=== PATIENT | male | born 1985 | race African-American/Black ===

== ENCOUNTER → 2023-05-14 07:41 | Outpatient (REF) | payer OTHER, SELFPAY | LOC: HWRAD 07:41 | PROVIDERS: ATTENDING PHYSICIAN Internal Medicine Rheumatology; FAMILY PHYSICIAN Physician Assistant | DX: M05.79 Rheumatoid arthritis with rheumatoid factor of multiple sites without organ or systems involvement (principal) | CPT/HCPCS: 76700 ==

== ENCOUNTER 2024-04-04 15:17 | Inpatient (IN) | payer OTHER, SELFPAY ==
[2024-04-04 09:44] VITALS: BP 116/80
--- NOTE | 2024-04-04 10:54 | ED.GENMED ---
History of Present Illness
General
Chief Complaint: Eye Problems
Source: patient
Time Seen by Provider: 04/04/24 10:37
History of Present Illness
History of Present Illness:
This patient is a very pleasant 38-year-old male who says that he first noticed discomfort in the left forehead and infraorbital area around Patrick time, but did not think much about it. Then, he felt like his discomfort got worse associated
with a red eye without drainage, and 'bumps' on his upper lip on the left side. He feels that the left side of his upper face and midface is a little swollen as well. He describes an episode of preseptal cellulitis years ago, but states that the
symptoms are much more mild than prior. He denies fever, chills, sweats, visual changes, eye discharge, foreign body sensation, ear pain, sore throat, cough, chest pain, shortness of breath, trouble swallowing, or other complaints.
Past History
Past History
ED Past Medical History: Other (Sarcoidosis, hypertension, reflux)
ED Past Surgical History: Other (Lymph node biopsy, vocal cord surgery)
Social History
Tobacco: Former smoker
Alcohol: None
Drug: None
Personal:
Living: with family
Employment: Employed
Phy Exam
Physical Exam
Physical Exam:
GENERAL: Alert , in no apparent distress
EYE: pupils equal and reactive, mild conj injection, no drainage/discharge. Flourescein stain, no lesions/abnl noted. EOMI without pain or limitation, no photophobia, no nystagmus, no proptosis. There is chemosis and mild swelling noted of st L
periorbital area.
NECK: Supple, no significant adenopathy.
ENT: o/p clr, mmm. Small papules noted L side Upper lip.
CARDIAC: Regular rate and rhythm .
LUNGS: Clear breath sounds bilaterally, no acute respiratory distress, no wheezes/rales/rhonchi
ABDOMEN: Soft, without focal tenderness, no r/g, no cvat
NEUROLOGICAL: Alert and oriented, no focal neuro deficits
SKIN: Warm and dry, skin intact.
MUSCULOSKELETAL: No edema, well perfused.
PSYCH: Normal and appropriate interaction.
Course
Orders/Labs/Results
Orders:
Orders
04/04/24 10:51
CT Orbits With Iv Contrast Urgent
Comment:
Reason For Exam: l perioribtal swelling
04/04/24 10:52
Visual Acuity- Treatment ONCE
04/04/24 11:14
Fluorescein Sodium [Ful-Sherie] 2 mg .ROUTE .STK-MED ONE
Tetracaine HCl [Tetracaine 0.5% Ophthalmic Solution] 1 drop .ROUTE .STK-MED ONE
04/04/24 11:22
Basic Metabolic Panel Urgent
Complete Blood Count/No Diff Urgent
04/04/24 13:51
CefTRIAXone [Rocephin] 1,000 mg IV NOW STA
MetroNIDAZOLE 500 MG/100 ML [Flagyl 500 mg] 100 ml IV NOW
04/04/24 13:55
Vancomycin [Vancocin] 1,500 mg 0.9% Sodium Chloride 500 ml [Nss] 500 ml IV NOW
04/04/24 14:58
Admit/Transfer Patient As Directed
Co-Sign Provider:
Level of Care: Inpatient admission
Assign to:: Medical/Surgical
Physician / Group: Ezekiel Bowles
Diagnosis: dacryoadenitis
Reason for Hospitalization: dacryoadenitis
Expected length of stay greater than two midnights?: Yes
ELOS- Estimated Length of Stay in days: 3
I certify the patient meets the requirements for IP care: Yes
PRN Pain Medication Management As Directed
May give lesser potent ordered pain med per pt: Yes
preference::
Protocol:: Medication orders for pain may be administered in a
manner that supports deferring to patient preference
when the pt is:
- Requesting an ordered lesser potent pain medication.
Least to most potent pain medications are defined
as: acetaminophen < NSAID < tramadol < opioids
(morphine, oxycodone, hydromorphone).
- Requesting a lesser dose of the same medication IF
ORDERED.
- Requesting a less intrusive route of administration
if both routes are prescribed by the provider (PO <
IV).
04/04/24 15:00
Code Status As Directed
Resuscitation Status: Full Code
Regular
At Your Request: Full Participation
04/04/24 15:03
Piperacillin/Tazo 3.375 Gram [Zosyn] 3.375 gram in 50 ml IV NOW
04/04/24 16:00
Flush (0.9% Sodium Chloride) [Flush (Nss)] See Dose Instructions IV PER PROTOCOL
04/04/24 18:25
Activity As Directed
Activity Level: Ambulate
Vital Signs As Directed
Frequency: Per unit guidelines
Weight As Directed
Frequency: Once
DX Deep Vein Thrombosis Video Routine
04/04/24 22:00
Piperacillin/Tazo 3.375 Gram [Zosyn] 3.375 gram in 50 ml IV Q6H
04/05/24 07:39
Complete Blood Count/No Diff IN AM
04/05/24 08:00
Losartan [Cozaar] 25 mg PO DAILY
Montelukast Sodium [Singulair] 10 mg PO DAILY
Pantoprazole [Protonix] 40 mg PO DAILY
04/05/24 18:00
Enoxaparin Sodium [Lovenox] 40 mg SC QPM
Abnormal Lab Results
04/04/24
11:22
MCHC 32.5 L g/dL
(33.0-37.0)
Glucose 101 H mg/dl
(70-99)
04/04/24 11:22
04/04/24 11:22
Vital Signs
Initial and Last Documented VS:
Initial Vital Signs
Temp Pulse Resp BP Pulse Ox
98.4 F 103 18 116/80 95
04/04/24 09:44 04/04/24 09:44 04/04/24 09:44 04/04/24 09:44 04/04/24 09:44
Last Documented Vital Signs
Temp Pulse Resp BP Pulse Ox
98.1 F 90 20 160/64 98
04/07/24 07:51 04/07/24 07:51 04/07/24 07:51 04/07/24 07:51 04/07/24 07:51
*Critical Care Note
Total Time (30-74mins, 75-104mins- exclusive of procedures): Not Applicable
Update Note
Update Note:
Patient presents to the Emergency Department with periorbital swelling
Number and Complexity of Problems Addressed at the Encounter
� Chronic conditions affecting care:
� Acute Exacerbation and/or Progression of Chronic Illness:
� Differential Diagnosis includes: But not limited to shingles, septal cellulitis, preseptal cellulitis, etc.
Amount and/or Complexity of Data to be Reviewed and Analyzed
� I performed an independent evaluation of and my interpretation is:
EKG:
CT:read by rads Predominantly soft tissue prominence in the region of the left lacrimal gland suggesting dacryoadenitis
Xrays:
Laboratory Studies:unremarkable
Other:
� Review of other/old records reveals: prior d/c summary reviewed: pt had very similar presentation, dx with dacryoadenitis, MSSA +, initially on rocephin/flagyl/vanco and then spectrum narrowed.
� Clinical information was obtained by an independent historian:
� Prescriptions/Medications Considered but not given:
� Further testing considered but not performed:
Risk of Complications and/or Morbidity or Mortality of Patient Management
� Social determinants of health affecting care:
� Discussion with other providers (PCP, Hospitalists, Consultants, etc):
� Escalation of care including admission/observation vs risk of discharge considered:case d/w pt, we will admit, broader iv abx coverage, close obs.
I still wonder if papules at lip and L forehead represent early zoster? Will need close monitoring. No corneal involvement at this time.
ED Attending Note
-
Portions of this chart may have been created with voice recognition software.� Occasional wrong word or��sound alike� substitutions may have occurred due to the inherent limitations of voice recognition software.
Discharge Plan
Departure
Patient Disposition: Admit
Date of Disposition: 04/04/24
Time of Disposition: 13:58
Admit to: Med/Surg
Presentation/result/management discussed w/ accepting MD/DO: Hospitalist
Condition: Fair
Discharge Problem:
Dacryoadenitis
Interventions
Interventions:
*Risk Screen - Suicide Last Done: 04/04/24 18:34
*General Assessment Last Done: 04/04/24 09:44
*Neglect/Abuse Screening Last Done: 04/04/24 09:44
ED- Fall Risk Assessment Last Done: 04/04/24 11:29
*ED COVID-19 Vaccine History Last Done: 04/04/24 11:29
*Nursing Disposition Last Done: 04/04/24 18:26
Discharge Date and Time
Discharge Date/Time: 04/04/24 18:27
[2024-04-04 11:38] LABS: Hematocrit 42.8 % (39.0-52.0); Hemoglobin 13.9 g/dL (13.0-18.0); Mean Corp Hgb Conc. 32.5 g/dL (33.0-37.0); Mean Corpuscular Hgb 28.9 pg (27.0-31.0); Platelet Count 230 10^3/uL (130-400); Red Blood Cell Count 4.81 10^6/uL (4.70-6.10); Red Cell Dist. Width 14.2 % (11.5-14.5); White Blood Cell Count 6.8 10^3/uL (4.8-10.8)
[2024-04-04 11:48] LABS: Blood Urea Nitrogen 14 mg/dl (9-20); Calcium 9.1 mg/dl (8.4-10.2); Carbon Dioxide 27 mmol/L (22-30); Chloride 103 mmol/L (98-107); Glucose 101 mg/dl (70-99); Potassium 4.2 mmol/L (3.5-5.1); Sodium 140 mmol/L (135-145); eGFR > 60.00
[2024-04-04 13:44] VITALS: BP 160/106
--- NOTE | 2024-04-04 14:08 | HPS.HSE ---
Family Physician
-
Family Physician: Janis Gomez
Chief Complaint
-
Left eye discomfort
History of Present Illness
Patient is a 38-year-old male with past medical history significant for sarcoidosis, hypertension and GERD who presented to [facility] for evaluation of left eye discomfort. Patient reports on Patrick he noticed a headache located in the left
periorbital area with some mild redness that resolved after taking Motrin. Since then he has intermittent headaches in the same area that improved after taking Motrin. This morning he claims he woke with left periorbital swelling, erythema and eye
was crusted shut. All associated with upper left teeth discomfort and area of small bumps on upper left lip. He feels the left side of his face from just above brow to lip is mildly swollen. He cleansed with warm water and has not seen any drainage
since. Patient denies any fever, chill, cough, shortness of breath, chest pain, nausea, emesis, constipation, diarrhea or urniary symptoms.
Medical History
Past Medical History
Past Medical History: Reports Other
Additional Past Medical History:
sarcoidosis
hypertension
seasonal allergies
GERD
Past Surgical History: Reports Other
Additional Past Surgical History:
Lymph node biopsy
vocal cord surgery
nasal polypectomy
tear duct surgery
Social History
Tobacco: Former Smoker (quit 12 year ago, 3 pack year history)
Alcohol: Occasional
Drug: None
Personal:
Living: With Family
Employment: Employed
Family History
Family History: Not pertinent
Allergies / Home Medications
Allergies reflects when Allergies were last updated in [facility].
Home Medications with original date entered in [facility]
Allergy/Medication List:
Allergies
Allergy/AdvReac Type Severity Reaction Status Date / Time
sulfamethoxazole Allergy Rash Verified 04/04/24 09:44
[From Bactrim]
trimethoprim [From Bactrim] Allergy Rash Verified 04/04/24 09:44
Home Medications
infliximab 100 mg intravenous solution (Remicade) 100 mg IV Q2M 08/04/19
amoxicillin 875 mg-potassium clavulanate 125 mg tablet 1 tab PO BID #20 tabs 06/29/22
losartan 25 mg tablet 25 mg PO DAILY 06/29/22
omeprazole 40 mg capsule,delayed release 40 mg PO DAILY 06/29/22
dextroamphetamine-amphetamine ER 30 mg 24hr capsule,extend release (Adderall XR) 30 mg PO DAILY 04/04/24
montelukast 10 mg tablet (Singulair) 10 mg PO DAILY 04/04/24
tirzepatide 7.5 mg/0.5 mL subcutaneous pen injector (Mounjaro) 7.5 mg SC FR 04/04/24
Review of Systems
-
History Source: Patient
Constitutional: Reports No Symptoms
EENT: Reports Other (Left periorbital erythema and edema, some crusting this morning, upper left teeth pain and small bumps on upper left lip)
Respiratory: Reports No Symptoms
Cardiac: Reports No Symptoms
Abdomen/GI: Reports No Symptoms
: Reports No Symptoms
Musculoskeletal: Reports No Symptoms
Skin: Reports No Symptoms
Neurological: Reports No Symptoms
Endocrine: Reports No Symptoms
Hematologic/Lymphatic: Reports No Symptoms
Psych: Reports No Symptoms
Physical Exam
Vital Signs
Vital Signs
Temp Pulse Resp BP Pulse Ox
98.4 F 96 18 160/106 96
04/04/24 09:44 04/04/24 13:44 04/04/24 09:44 04/04/24 13:44 04/04/24 13:44
Physical Exam
General: Well Developed, Well Nourished, No Apparent Distress, Comfortable and Conversant
HEENT: NormoCephalic, Moist mucous membranes, Atraumatic, PERRLA, [place] Conjunctivae, Nose Appears Normal, Ears Appear Normal and Other (Left periorbital erythema and chemosis, mild left face edema); No No Ptosis
Respiratory: Clear and Non Labored Respirations
Cardiac: S1/S2 and Regular Rhythm; No Murmur, Rub or Gallop
Breast: Deferred by me
GI: Soft, Non Tender, Non Distended and Normal Bowel Sounds; No Organomegaly
Rectal: Deferred by Provider
Genito-urinary: Deferred by me
Musculoskeletal: No Clubbing, No Cyanosis and No Edema
Skin: Warm and IV/Catheter Site; No Rash
Neuro: Awake, Alert, AO x 3 and Nonfocal/grossly intact
Hematologic/Lymphatic: No Lymphadenopathy
Psych: Calm and Intact Judgment/Insight
Laboratory Results
-
04/04/24 11:22
04/04/24 11:22
Data Reviewed
-
CT Scan: Report Reviewed by me (Head/Orbits: Predominantly soft tissue prominence in the region of the left lacrimal gland suggesting dacryoadenitis)
Impression/Plan
-
IMPRESSION/PLAN:
#Dacryoadenitis
Head/Orbits CT: Predominantly soft tissue prominence in the region of the left lacrimal gland suggesting dacryoadenitis
- Admit to med/surg
- IV antibiotics
#sarcoidosis
Managed with Remicade q2M
#hypertension
- continue losartan
#seasonal allergies
- continue cetirizine, and fluticasone propionate nasal spray
#GERD
- continue omeprazole
Code Status: Full Code
DVT Prophylaxis: Lovenox Sq
[2024-04-04 15:25] VITALS: BMI 48.8
--- NOTE | 2024-04-04 15:32 | W.PN.UPDATE ---
Update Note
Progress Note Update
This is an addendum to the H&P written by Kelli Li on 04/04/2024. 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
38-year-old male past medical history of sarcoidosis with lung/nasal granuloma involvement stable on Remicade, prior dacryoadenitis of left eye 4 years ago, chronic sinusitis follows ENT regularly, hypertension, GERD, ADHD, presenting with left
forehead and infraorbital discomfort around Patrick. Over the past day he has developed left eye discomfort and redness and sensitivity.
He also has an area of redness around the skin to his left eye which could be contiguous cellulitis.
No pain with eye movements. No blurry vision or vision loss.
He has also developed a cold sore under his left upper lip and the mucosa which is painful.
Head/orbit CT scan shows left lacrimal gland dacryoadenitis. Also possible preseptal cellulitis. No signs of acute sinusitis at this time. Vancomycin/Zosyn. Patient also has a cold sore in his mouth. Findings likely due to underlying
sarcoidosis although no clear indication for steroids at this time. Doubt pyoderma gangrenosum. Continue vancomycin/Zosyn.
[2024-04-04] MEDS: ZOSYN 50 IV ×2 (15:53→22:21)
[2024-04-04] MEDS: VANCOCIN 530 MG IV (16:36)
[2024-04-04 18:27] VITALS: BP 154/112; BMI 49.5
--- NOTE | 2024-04-04 18:45 | PTCARENOTE ---
Received pt from ER.Pt awake alert and oriented x3. Pt c/o pain in teeth describes as 'nerve like pain' tolerable at this time. Pt 100% on RA. No c/o SOB. Pt bp elevated admitting MD made aware. Pt also c/o face feeling hot, numb, pins and needles
within 15 minutes of vanco infusion starting arrived to floor with only 20cc left in loading dose. Admitting MD made aware, Afebrile at this time. Pt has redness noted to outside corner of left eye, along with bumps, to left forehead/zoroastrian. an
inside and outside corner or left lip. Pt oriented to room, call wallace within reach, plan of care continues,.
--- NOTE | 2024-04-04 19:35 | PHA.VAN.IN ---
Addendum entered and electronically signed by Garima Saleh RPH 04/05/24 09:41:
Note: Vancomycin 1500mg Q12H provided the following patient-specific PK in August 2019:
Cmax = 23.5
Cmin = 8.6
AUC = 360
ke = 0.095
half-life = 7.3H
Vanc Cl = 139 ml/min
Levels were drawn after 4th maintenance dose; however, patient may not fully have been at steady state given weight > 100kg
Regimen was adjusted to Vanc 1750mg Q12H, which predicted AUC 460, trough 11.3 based on patient specific PK but levels were not drawn on new regimen
Original Note:
Assessment
- Assessment
Renal Function: Appears similar to baseline
Concomitant Antimicrobials: ZOSYN
- Previous Dosing Experience
Previous Regimen: 1750MG IV Q12H - 1 DOSE GIVEN
Date of Regimen: 08/07/19
Provided Trough of: UNKNOWN
Provided AUC of: 460 PREDICTED
Patient's SCR is: Similar to previous dosing experience
Patient's weight is: Elevated compared to previous dosing experience (08/07/19 WT = 147 KG)
AUC Dosing Plan
- Dosing Variables
Dosing Weight (kg): 174.6
Dosing CrCl (ml/min): 100
Vd coefficient (L/kg): 0.5
- Empiric Dosing
Initial / Loading Dose: 2GM TOTAL
Maintenance Regimen: 1750MG IV Q12H
Estimated AUC (mcg*h/mL): 499
Estimated Peak (mcg*h/mL): 30.9
Estimated Trough (mcg/ml): 12.9
Estimated Half Life (H): 7.9
Pharmacokinetics Vancomycin I
- -
Patient Age: 38
Patient Sex: Male
Vancomycin Day #: 1
Indication: Eye Or Ent Infection ([L] EYE CELLULITIS; MICHEAL-SEPTAL CELLULITIS)
Requesting Provider: YAMILET
Pertinent Antimicrobial Allergies:
Allergies
trimethoprim [From Bactrim] Allergy (Verified 04/04/24 09:44)
Rash
Height / Weight:
Height 6 ft 2 in
Actual Weight 174.633 kg
Pertinent Past Medical History: SARCOIDOSIS
- Vital Signs / Lab Results
Temp Pulse Resp BP Pulse Ox
98.3 F 108 18 154/112 100
04/04/24 18:27 04/04/24 18:27 04/04/24 18:27 04/04/24 18:27 04/04/24 18:27
Lab Results - Hematology
04/04/24
11:22
WBC 6.8
Lab Results - Chemistry
04/04/24
11:22
BUN 14
Creatinine 0.8
[2024-04-04] MEDS: VANCOCIN HCL 500 MG 100 IV (21:12)
[2024-04-04] MEDS: TORADOL 15 MG IV (21:21)
[2024-04-05 00:25] VITALS: BP 141/76
[2024-04-05] MEDS: ZOSYN 50 IV ×2 (03:57→11:16)
[2024-04-05] MEDS: VANCOCIN 535 MG IV (05:42)
[2024-04-05] MEDS: SINGULAIR 10 MG PO (07:58)
[2024-04-05] MEDS: PROTONIX 40 MG PO (07:58)
[2024-04-05] MEDS: COZAAR 25 MG PO (07:58)
[2024-04-05 08:13] VITALS: BP 130/75
[2024-04-05] MEDS: NON-FORMULARY ITEM 30 MG PO (09:22)
--- NOTE | 2024-04-05 09:40 | PHA.VAN.FU ---
Addendum entered and electronically signed by Garima Saleh RPH 04/05/24 15:03:
Patient receiving concomitant ketorolac. BUN & SCR ordered per protocol for renal function monitoring with vancomycin.
Original Note:
Vancomycin Assessment / Plan
- Assessment
Renal Function: No New Labs Today
In the past 24 hrs, patient has been: Afebrile
Concomitant Antimicrobials: piperacillin/tazobactam
- Dosing Plan
Continue: Vanc 1750mg Q12H
- Monitoring Plan
No level(s) ordered at this time: consider levels in next few days
Monitoring Comments: may be slow to accumulate given BMI
- Follow Up
Pharmacy will continue to follow.
Vancomycin Follow UP
- -
Patient Age: 38
Patient Sex: Male
Vancomycin Day #: 2
Indication: Eye Or Ent Infection
Requesting Provider: Theodore Li
Pertinent Antimicrobial Allergies:
smx/tmp - rash
Height / Weight:
Height 6 ft 2 in
Actual Weight 174.633 kg
Pertinent Past Medical History: BMI ~49, sarcoidosis (infliximab)
- Vital Signs / Lab Results
Temp Pulse Resp BP Pulse Ox
97.7 F 75 16 130/75 96
04/05/24 08:13 04/05/24 08:13 04/05/24 08:13 04/05/24 08:13 04/05/24 08:13
Lab Results - Hematology
04/04/24
11:22
WBC 6.8
Lab Results - Chemistry
04/04/24
11:22
BUN 14
Creatinine 0.8
[2024-04-05 09:44] LABS: Hemoglobin 12.8 g/dL (13.0-18.0); Mean Corpuscular Hgb 28.7 pg (27.0-31.0); Mean Corpuscular Volume 89.7 fL (80.0-94.0); Mean Platelet Volume 10.3 fL (7.4-10.4); Platelet Count 221 10^3/uL (130-400); Red Blood Cell Count 4.46 10^6/uL (4.70-6.10); Red Cell Dist. Width 14.3 % (11.5-14.5); White Blood Cell Count 5.6 10^3/uL (4.8-10.8)
[2024-04-05] MEDS: TORADOL 15 MG IV ×2 (11:22→21:13)
--- NOTE | 2024-04-05 11:56 | W.PN.HOSP.TC ---
Today's Communication/Plan
-
dc zosyn
topcial cream
ID input
Assessment / Plan
Assessment / Plan
General: Well Developed, Well Nourished, No Apparent Distress, Comfortable and Conversant
HEENT: NormoCephalic, Moist mucous membranes, Atraumatic, left eye red Conjunctivae, Nose Appears Normal, Ears Appear Normal and Other (Left periorbital erythema and chemosis, mild left face edema); left forehead maculapapular rash
Respiratory: Clear and Non Labored Respirations
Cardiac: S1/S2 and Regular Rhythm; No Murmur, Rub or Gallop
GI: Soft, Non Tender, Non Distended and Normal Bowel Sounds; No Organomegaly
Musculoskeletal: No Clubbing, No Cyanosis and No Edema
Skin: Warm, No Rash
Neuro: Awake, Alert, AO x 3 and Nonfocal/grossly intact
Hematologic/Lymphatic: No Lymphadenopathy
Psych: Calm and Intact Judgment/Insight
#Suspected left preseptal cellulitis immunosuppressive patient
dacryoadenitis
Suspected sarcoidosis cutaneous rash left forehead
Continue vancomycin
DC Zosyn
Topical steroids for rash
Will ask ID for input
CT noted
#Sarcoidosis
-remicade q2w
-Follows up with software team leader in [facility]
ADD-continue with Adderall
Primary HTN -continue with losartan
Morbid obesity due to excess calories- on Mounjaro
DVT ppx-scds/encourage ambulation/lovenox
d/w with spouse at bedside in details
Anticipated Discharge: 24 - 48 hours
Subjective/Interval History
-
Date of Service: April 05, 2024
states of increase tearing from left eye
no pain with eye movement
sitting in bed comfortable
states of prior hx of pre-septal cellulitis and blockage of tearing duct s/p surgery
wbc normal and afebrile
States initially he thought he was having sinusitis and follow-up with telemedicine who prescribed patient Augmentin. Patient said he took 2 doses of Augmentin. Developed facial rash and decided come into the hospital
Objective Data
-
Labs:
Laboratory Results
04/05/24
07:39
WBC 5.6
Hgb 12.8 L
Hct 40.0
Plt Count 221
Vital Signs:
Vital Signs
Temp Pulse Resp BP Pulse Ox
97.7 F 75 16 130/75 96
04/05/24 08:13 04/05/24 08:13 04/05/24 08:13 04/05/24 08:13 04/05/24 08:13
[2024-04-05] MEDS: CLOBETASOL PROPIONATE 0.05% CREAM 1 APPLIC TOPICAL (12:24)
--- NOTE | 2024-04-05 14:24 | CON.ID ---
Addendum entered and electronically signed by Luisana Hanna MD 04/05/24 16:09:
Additional exam finding: clusters of vesicles on left nasolabial, early vesicular lesions clusters on erythematous base over left cheekbone and temporal areas.
Original Note:
Consultation
-
Date/Time Consultation Requested: April 05, 2024
Date/Time Consultation Performed: April 05, 2024 1425
Requesting Provider: Dr. Dusty Llamas
Performing Provider: Dr. Luisana Hanna
Reason for Consultation: Preseptal cellulitis
Chief Complaint / Past History
Chief Complaint
Swelling around left eye
History of Present Illness
38-year-old male with history of sarcoidosis on Remicade, hypertension, history of left preseptal cellulitis from dacryoadenitis in 2019 who presented to the hospital April 04 with left per-orbital edema and erythema. Patient reports on
, he noted pain on the left side of his head above and below the left orbit. No lesions. He took Motrin with some improvement. The next day the pain persisted. He took Motrin again. He also noted that the left lateral conjunctiva
was mildly red. 2 days ago, small vesicles appeared on the left nasolabial sulcus. Yesterday he woke up with periorbital erythema and edema with crusting drainage. He thought he had sinus infection; [facility]. He took 2 doses without improvement. He therefore came to the ER yesterday. He was started on vancomycin and Zosyn. CT of the orbit showed dacryoadenitis. Yesterday he developed more vesicles on the left temporal area. No eye pain
with movement. Vision is stable. No ill contacts.
Past History
Additional Past Medical History:
Sarcoidosis with lung/nasal granuloma on Remicade
Hypertension
GERD
ADHD
morbid obesity BMI 49
Vocal cord surgery
Lymph node biopsy
Bilateral Lacrimal duct dilation 2019
Nasal polypectomy
Allergy History:
sulfamethoxazole [From Bactrim] Allergy (Verified 04/04/24 09:44)
Rash
trimethoprim [From Bactrim] Allergy (Verified 04/04/24 09:44)
Rash
Medications Reviewed: Yes
Current Antibiotics:
Vancomycin d2
Social History
Tobacco: Former Smoker
Alcohol: Occasional
Drug: None
Personal:
Living: With Family
Employment: Employed (Works from home)
Family History
Family History: Not Pertinent
Review of Systems
Review of Systems
General: Negative Fever, Chills or Change in Appetite
HEENT: Negative Stiff Neck, Sinus Problems or Pharyngitis
Cardiovascular: Negative Chest Pain or Dyspnea
Respiratory: Negative Dyspnea or Cough
Gasteroenterology: Negative Nausea, Vomiting or Diarrhea
Genital / Urological: Negative Dysuria or Flank Pain
Endocrine: Negative Weakness
Neurological: Negative Dizziness
All systems: All other systems were reviewed and were negative
Vital Signs
Temp Pulse Resp BP Pulse Ox
97.7 F 75 16 130/75 96
04/05/24 08:13 04/05/24 08:13 04/05/24 08:13 04/05/24 08:13 04/05/24 08:13
Physical Exam
Physical Exam
Constitutional: No Acute Distress, Comfortable and Obese
Eyes: Sclera Anicteric and Other (left lateral conjunctiva + chemosis and mild erythema. EOMI. + perioribial edema, erythema. + yellow crusty drainage from eye. )
Oral: Negative No Ulcers
Cardiovascular: Regular Rate and S1/S2
Pulmonary: Clear
Gastrointestinal: Non Tender, Non Distended and Normal Bowel Sounds
Genito-Urinary: Negative CVA Tenderness
Extremities: Negative Edema
Neurological: AO x 3
Lab / Diagnostic Study Results
04/05/24 07:39
04/04/24 11:22
Microbiology Results
04/04/24 CT orbit: Predominantly soft tissue prominence in the region of the left lacrimal gland suggesting dacryoadenitis
Assessment / Plan
# Suspect left V2 herpes zoster in an immunocompromised host
- I unroofed left upper lip vesicle, swabbed fluid for HSV1,2 PCR and VZV PCR
- Airborne isolation for now.
- Start Acyclovir 1100mg IV q8h
- Monitor closely for nephrotoxicity.
# Left preseptal cellulitis
- ? herpes vs bacterial
- CT orbit: no orbital involvement. + dacryoadenitits
- Check MRSA screen.
- Replace Vancomycin with cefazolin (h/o MSSA, GBS recovered from left tear duct in 2019)
#Sarcoidosis with lung/nasal granuloma on Remicade
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
Sarcoidosis with lung/nasal granuloma on Remicade
Hypertension
GERD
ADHD
morbid obesity BMI 49
Vocal cord surgery
Lymph node biopsy
Bilateral Lacrimal duct dilation 2019
Nasal polypectomy
Care Review
Plan reviewed with: Nurse (Tiffany)
--- NOTE | 2024-04-05 14:53 | CM ---
CM met with patient to complete IA. He lives with his in 2 story home, no entry steps. Aaron reports being (I) amb and adls, drives regularly. Has never needed [facility] in past and has no DME.
Plan: Pt anticipates no needs at discharge; will transport at d/c.
Pharmacy: [facility]
PCP: Janis Gomez
[2024-04-05 15:00] VITALS: BP 127/74
[2024-04-05] MEDS: ZOVIRAX INJECTION 272 MG IV (17:15)
[2024-04-05] MEDS: LOVENOX 40 MG SC (17:23)
--- NOTE | 2024-04-05 20:12 | PTCARENOTE ---
Patient with negative MRSA swab. Culture of left temporal area sent for shingles. Patient started on Acylcovir. Patient placed on respiratory isolation as the area cannot be covered with a dressing. Patient does not have a room mate at this time.
[2024-04-05] MEDS: CLOBETASOL PROPIONATE 0.05% CREAM TOPICAL ×2 (21:10→23:17)
[2024-04-05] MEDS: ANCEF 10 IV (21:10)
[2024-04-05 23:13] VITALS: BP 124/70
--- NOTE | 2024-04-05 23:40 | PTCARENOTE ---
Report called to 4W RN and patient transferred to [facility] with all belongings.
--- NOTE | 2024-04-05 23:45 | PTCARENOTE ---
Pt transferred from [facility]. Pt ambulated into room. Pt oriented to unit, call wallace within reach. Will continue with current plan.
[2024-04-05 23:51] VITALS: BP 134/82
[2024-04-06] MEDS: ZOVIRAX INJECTION 272 MG IV ×3 (00:13→17:17)
[2024-04-06] MEDS: ANCEF 10 IV ×3 (05:02→22:08)
[2024-04-06 05:49] LABS: Blood Urea Nitrogen 10 mg/dl (9-20); Estimated Creatinine Clearance > 125 ml/min
[2024-04-06 07:00] VITALS: BP 127/88
[2024-04-06] MEDS: PROTONIX 40 MG PO (08:56)
[2024-04-06] MEDS: COZAAR 25 MG PO (08:57)
[2024-04-06] MEDS: SINGULAIR 10 MG PO (08:57)
[2024-04-06] MEDS: CLOBETASOL PROPIONATE 0.05% CREAM TOPICAL ×2 (08:58→09:14)
[2024-04-06] MEDS: NON-FORMULARY ITEM 30 MG PO (08:59)
[2024-04-06] MEDS: TORADOL 15 MG IV ×2 (09:14→22:17)
--- NOTE | 2024-04-06 13:39 | W.PN.ID1 ---
Date of Service
Date of Service: April 06, 2024
Today's Communication
Continue Acyclovir and cefazolin.
Assessment / Plan
# Suspect left V2 herpes zoster in an immunocompromised host
- left upper lip vesicle fluid HSV1,2 PCR pending, VZV PCR pending
- Continue airborne isolation
- Continue Acyclovir 1100mg IV q8h (d2)
- Monitor closely for nephrotoxicity.
# Left preseptal cellulitis
- Suspect herpes Zoster over bacterial
- CT orbit: no orbital involvement. + dacryoadenitits
- MRSA screen negative
- Continue cefazolin (h/o MSSA, GBS recovered from left tear duct in 2019)
#Sarcoidosis with nasal/vocal cord/lung granuloma, on Remicade
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
Sarcoidosis with lung/nasal granuloma on Remicade
Hypertension
GERD
ADHD
morbid obesity BMI 49
Vocal cord surgery
Lymph node biopsy
Bilateral Lacrimal duct dilation 2019
Nasal polypectomy
Chief Complaint
-: Other (Shingles)
Subjective / Review of Systems
c/o pain left side of face and left upper gums.
No visual change or pain.
Vital Signs / Physical Exam
Vital Signs
Vital Signs
Temp Pulse Resp BP Pulse Ox
98.6 F 84 20 127/88 96
04/06/24 07:00 04/06/24 07:00 04/06/24 07:00 04/06/24 07:00 04/06/24 08:00
Physical Exam
Constitutional: No Acute Distress and Comfortable
Eyes: Ocular Discharge and Other (+ edema inferior-lateral to left orbit; + chemosis left lateral conjunctiva)
Cardiovascular: Regular Rate and S1/S2
Pulmonary: Clear
Gastrointestinal: Soft, Non Tender and Non Distended
Extremities: Negative Edema
Skin: Other (vesicles over left nasolabial starting to crust; other vesicles cheek bone and temporal evolving)
Neurological: AO x 3
Objective Data
Lab Data
Lab Results
04/05/24 07:39
04/06/24 04:34
Estimated Creat Clear > 125 ml/min 04/06/24 04:34
Most recent labs reviewed.
Micro Results:
04/05/24 15:50 Nasal Screen MRSA (PCR) - Final
Nose MRSA not detected - performed by PCR methodology.
04/04/24 CT orbit: Predominantly soft tissue prominence in the region of the left lacrimal gland suggesting dacryoadenitis
--- NOTE | 2024-04-06 13:47 | W.PN.HOSP.TC ---
Addendum entered and electronically signed by Dusty Llamas MD 04/07/24 12:57:
Of note patient was offered gabapentin for facial pain which is due to herpes zoster. Patient refused.
Original Note:
Today's Communication/Plan
-
IV acyclovir
IV cefazolin
ID recs
Assessment / Plan
Assessment / Plan
General: Well Developed, Well Nourished, No Apparent Distress, Comfortable and Conversant
HEENT: NormoCephalic, Moist mucous membranes, Atraumatic, left eye red Conjunctivae, Nose Appears Normal, Ears Appear Normal and Other (Left periorbital erythema and chemosis, mild left face edema); left forehead maculapapular rash, Left upper lip
crusting noted
Respiratory: Clear and Non Labored Respirations
Cardiac: S1/S2 and Regular Rhythm; No Murmur, Rub or Gallop
GI: Soft, Non Tender, Non Distended and Normal Bowel Sounds; No Organomegaly
Musculoskeletal: No Clubbing, No Cyanosis and No Edema
Skin: Warm, No Rash
Neuro: Awake, Alert, AO x 3 and Nonfocal/grossly intact
Hematologic/Lymphatic: No Lymphadenopathy
Psych: anxious
# left preseptal cellulitis immunosuppressive patient
dacryoadenitis
Suspected left side facial Herpes zoster V2 dermatome infection
DC vancomycin
DC Zosyn and now on IV cefazolin
CT head/orbits -Predominantly soft tissue prominence in the region of the left lacrimal gland suggesting dacryoadenitis
Started on IV acylcovir
monitor rash. Facial culture sent to lab per ID
can use ice pack for facial swelling/edema
#Sarcoidosis
-remicade q2w
-Follows up with cloth opener hand in [facility]
ADD-continue with Adderall
Primary HTN -continue with losartan
Morbid obesity due to excess calories- on Mounjaro
DVT ppx-scds/encourage ambulation/lovenox
d/w with spouse at bedside in details on 04/05
Anticipated Discharge: > 48 hours
Subjective/Interval History
-
Date of Service: April 06, 2024
states of increase tearing from left eye and swelling
states of teeth pain
increased crusting on Left upper lip noted
Objective Data
-
Labs:
Laboratory Results
04/06/24
04:34
BUN 10
Creatinine 0.9
Vital Signs:
Vital Signs
Temp Pulse Resp BP Pulse Ox
98.6 F 84 20 127/88 96
04/06/24 07:00 04/06/24 07:00 04/06/24 07:00 04/06/24 07:00 04/06/24 08:00
I&O
04/05/24 04/06/24 04/07/24
06:59 06:59 06:59
Intake Total 650 / 650
Balance 650 / 650
[2024-04-06 15:00] VITALS: BP 136/76
[2024-04-06] MEDS: LOVENOX 40 MG SC (17:17)
[2024-04-06 22:40] VITALS: BP 151/88
[2024-04-07] MEDS: ZOVIRAX INJECTION 272 MG IV ×3 (00:59→16:31)
[2024-04-07] MEDS: ANCEF 10 IV (05:22)
[2024-04-07 07:51] VITALS: BP 160/64
[2024-04-07] MEDS: NON-FORMULARY ITEM 30 MG PO (09:16)
[2024-04-07] MEDS: PROTONIX 40 MG PO (09:16)
[2024-04-07] MEDS: SINGULAIR 10 MG PO (09:16)
[2024-04-07] MEDS: COZAAR 25 MG PO (09:16)
[2024-04-07 09:41] LABS: % Basophils 1.3 % (0-2); % Immature Granulocytes 0.4 % (0-0.5); % Lymphocytes 40.4 % (20.5-51.1); % Monocytes 15.6 % (1.7-9.3); % Neutrophils 38.3 % (42.2-75.2); Absolute Basophils 0.1 10^3/uL (0-0.2); Absolute Eosinophils 0.2 10^3/uL (0-0.7); Absolute Lymphocytes 1.8 10^3/uL (1.2-3.4); Absolute Monocytes 0.7 10^3/uL (0.1-0.6); Absolute Neutrophils 1.7 10^3/uL (1.4-6.5); Hematocrit 40.5 % (39.0-52.0); Hemoglobin 13.4 g/dL (13.0-18.0); Mean Corp Hgb Conc. 33.1 g/dL (33.0-37.0); Mean Corpuscular Volume 87.7 fL (80.0-94.0); Nucleated Red Blood Cells % 0 % (-); Platelet Count 218 10^3/uL (130-400); Red Blood Cell Count 4.62 10^6/uL (4.70-6.10); Red Cell Dist. Width 14.1 % (11.5-14.5); White Blood Cell Count 4.6 10^3/uL (4.8-10.8)
[2024-04-07 10:11] LABS: Blood Urea Nitrogen 9 mg/dl (9-20); Calcium 9.1 mg/dl (8.4-10.2); Carbon Dioxide 29 mmol/L (22-30); Chloride 102 mmol/L (98-107); Estimated Creatinine Clearance > 125 ml/min; Glucose 102 mg/dl (70-99); Potassium 4.6 mmol/L (3.5-5.1); Sodium 140 mmol/L (135-145); eGFR > 60.00
[2024-04-07] MEDS: TORADOL 15 MG IV (10:44)
--- NOTE | 2024-04-07 12:48 | W.PN.HOSP.TC ---
Today's Communication/Plan
-
IV abx
IV anti-viral
okay to shower
monitor BP
Assessment / Plan
Assessment / Plan
General: Well Developed, Well Nourished, No Apparent Distress, Comfortable and Conversant
HEENT: NormoCephalic, Moist mucous membranes, Atraumatic, left eye red Conjunctivae, Nose Appears Normal, Ears Appear Normal and Other (Left periorbital erythema-improved and chemosis, mild left face edema); left forehead maculapapular rash
cursting, Left upper lip crusting noted
Respiratory: Clear and Non Labored Respirations
Cardiac: S1/S2 and Regular Rhythm; No Murmur, Rub or Gallop
GI: Soft, Non Tender, Non Distended and Normal Bowel Sounds; No Organomegaly
Musculoskeletal: No Clubbing, No Cyanosis and No Edema
Skin: Warm, No Rash
Neuro: Awake, Alert, AO x 3 and Nonfocal/grossly intact
Hematologic/Lymphatic: No Lymphadenopathy
Psych: anxious
# left preseptal cellulitis immunosuppressive patient
#dacryoadenitis
#Suspected left side facial Herpes zoster V2 dermatome infection
DC vancomycin
IV cefazolin and now transitioned back to Zosyn
CT head/orbits -Predominantly soft tissue prominence in the region of the left lacrimal gland suggesting dacryoadenitis
Started on IV acylcovir
monitor rash. Facial culture sent to lab per ID
can use ice pack for facial swelling/edema
okay to shower. MRSA negative.
refused artificial tears
swelling and erythema has improved. Pt not satisfied with antibiotics. Abx switched to Zosyn
#Sarcoidosis
-remicade q2w
-Follows up with glass etcher in [facility]
ADD-continue with Adderall
Suspected anxiety
Primary HTN -continue with losartan
Morbid obesity due to excess calories- on Mounjaro
DVT ppx-scds/encourage ambulation/lovenox
Anticipated Discharge: Within 24 hours
Subjective/Interval History
-
Date of Service: April 07, 2024
states he is not feeling better
states of tooth pain and pain at Left upper lip site
drinking soup
states of intermittent headache
no eye pain with movement
continues with increase tearing
no headache
Objective Data
-
Labs:
Laboratory Results
04/07/24
08:17
WBC 4.6 L
Hgb 13.4
Hct 40.5
Plt Count 218
Sodium 140
Potassium 4.6
Chloride 102
Carbon Dioxide 29
BUN 9
Creatinine 0.9
Glucose 102 H
Calcium 9.1
Vital Signs:
Vital Signs
Temp Pulse Resp BP Pulse Ox
98.1 F 90 20 160/64 98
04/07/24 07:51 04/07/24 07:51 04/07/24 07:51 04/07/24 07:51 04/07/24 07:51
I&O
04/06/24 04/07/24 04/08/24
06:59 06:59 06:59
Intake Total 650 / 650 1919
Balance 650 / 650 1919
--- NOTE | 2024-04-07 12:50 | W.PN.ID1 ---
Date of Service
Date of Service: April 07, 2024
Today's Communication
Replace cefazolin with Zosyn for now.
Assessment / Plan
# Suspect left V2 herpes zoster in an immunocompromised host
- left upper lip vesicle fluid HSV1,2 PCR pending, VZV PCR pending
- Continue airborne isolation until all lesions crusted.
- Continue Acyclovir 1100mg IV q8h (d3)
- Pain due to zoster.
- Monitor closely for nephrotoxicity.
# Left preseptal cellulitis
- Suspect herpes Zoster over bacterial
- CT orbit: no orbital involvement. + dacryoadenitits
- MRSA screen negative
-Pt c/o increased pain on cefazolin (prev on Vanco, Zosyn).
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
- Will replace cefazolin with Zosyn.
#Sarcoidosis with nasal/vocal cord/lung granuloma, on Remicade
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
Sarcoidosis with lung/nasal granuloma on Remicade
Hypertension
GERD
ADHD
morbid obesity BMI 49
Vocal cord surgery
Lymph node biopsy
Bilateral Lacrimal duct dilation 2019
Nasal polypectomy
Chief Complaint
-: Other (Shingles)
Subjective / Review of Systems
C/o worsening pain and hoarse voice since change of Vanco/Zosyn to cefazolin.
No visual changes.
Vital Signs / Physical Exam
Vital Signs
Vital Signs
Temp Pulse Resp BP Pulse Ox
98.1 F 90 20 160/64 98
04/07/24 07:51 04/07/24 07:51 04/07/24 07:51 04/07/24 07:51 04/07/24 07:51
Physical Exam
Constitutional: No Acute Distress and Comfortable
Eyes: Ocular Discharge (scant) and Other (+ edema inferior-lateral to left orbit; + chemosis left lateral conjunctiva)
Oropharyngeal: Benign; Negative Ulcers
Cardiovascular: Regular Rate and S1/S2
Pulmonary: Clear
Gastrointestinal: Soft, Non Tender and Non Distended
Extremities: Negative Edema
Skin: Other (vesicles over left nasolabial starting to crust; other vesicles cheek bone and temporal evolving vesicles; no new lesions)
Neurological: AO x 3
Objective Data
Lab Data
Lab Results
04/07/24 08:17
04/07/24 08:17
Estimated Creat Clear > 125 ml/min 04/07/24 08:17
Most recent labs reviewed.
Micro Results:
04/05/24 15:50 Nasal Screen MRSA (PCR) - Final
Nose MRSA not detected - performed by PCR methodology.
04/04/24 CT orbit: Predominantly soft tissue prominence in the region of the left lacrimal gland suggesting dacryoadenitis
[2024-04-07] MEDS: VISBIOME 2 CAP PO (14:27)
[2024-04-07] MEDS: ZOSYN 100 IV ×2 (14:27→23:01)
[2024-04-07 15:01] VITALS: BP 146/79
[2024-04-07] MEDS: LOVENOX 40 MG SC (17:16)
[2024-04-07 23:04] VITALS: BP 150/78
[2024-04-08] MEDS: ZOVIRAX INJECTION 272 MG IV ×3 (00:45→16:24)
[2024-04-08] MEDS: ZOSYN 100 IV ×3 (05:01→21:36)
[2024-04-08 07:40] VITALS: BP 147/88
[2024-04-08] MEDS: NON-FORMULARY ITEM 30 MG PO (08:55)
[2024-04-08] MEDS: SINGULAIR 10 MG PO (08:57)
[2024-04-08] MEDS: COZAAR 25 MG PO (08:57)
[2024-04-08] MEDS: VISBIOME 2 CAP PO (08:57)
[2024-04-08] MEDS: PROTONIX 40 MG PO (08:57)
[2024-04-08 09:32] LABS: Blood Urea Nitrogen 9 mg/dl (9-20); Calcium 9.1 mg/dl (8.4-10.2); Carbon Dioxide 25 mmol/L (22-30); Chloride 100 mmol/L (98-107); Estimated Creatinine Clearance > 125 ml/min; Glucose 111 mg/dl (70-99); Potassium 4.1 mmol/L (3.5-5.1); Sodium 138 mmol/L (135-145); eGFR > 60.00
--- NOTE | 2024-04-08 11:43 | CM ---
Chart reviewed and plan is to home no needs when stable.
Plan; Home no needs.
--- NOTE | 2024-04-08 12:20 | W.PN.ID1 ---
Date of Service
Date of Service: April 08, 2024
Today's Communication
Continue IV Acyclovir and Zosyn.
Possible transition to po tomorrow.
Assessment / Plan
# Suspect left V2 herpes zoster in an immunocompromised host
- left upper lip vesicle fluid HSV1,2 PCR pending, VZV PCR pending
- Continue airborne isolation until all lesions crusted.
- Continue Acyclovir 1100mg IV q8h (d4)
- Pain due to zoster.
- Monitor closely for nephrotoxicity.
# Left preseptal cellulitis
- Suspect herpes Zoster over bacterial
- CT orbit: no orbital involvement. + dacryoadenitits
- MRSA screen negative
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
- Continue Zosyn for now.
#Sarcoidosis with nasal/vocal cord/lung granuloma, on Remicade
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
Sarcoidosis with lung/nasal granuloma on Remicade
Hypertension
GERD
ADHD
morbid obesity BMI 49
Vocal cord surgery
Lymph node biopsy
Bilateral Lacrimal duct dilation 2019
Nasal polypectomy
Chief Complaint
-: Other (Shingles)
Subjective / Review of Systems
Pain better.
No visual change.
at bedside.
Vital Signs / Physical Exam
Vital Signs
Vital Signs
Temp Pulse Resp BP Pulse Ox
97.7 F 94 20 147/88 97
04/08/24 07:40 04/08/24 07:40 04/08/24 07:40 04/08/24 07:40 04/08/24 07:40
Physical Exam
Constitutional: No Acute Distress
Eyes: Ocular Discharge (scant) and Other (decreased edema inferior-lateral to left orbit; + chemosis left lateral conjunctiva)
Oropharyngeal: Benign; Negative Ulcers
Cardiovascular: Regular Rate and S1/S2
Pulmonary: Clear
Gastrointestinal: Soft, Non Tender and Non Distended
Extremities: Negative Edema
Skin: Other (vesicles over left nasolabial crusting ; other vesicles cheek bone and temporal startingto crust; clusters of vesicles front of ear)
Neurological: AO x 3
Objective Data
Lab Data
Lab Results
04/07/24 08:17
04/08/24 07:49
Estimated Creat Clear > 125 ml/min 04/08/24 07:49
Most recent labs reviewed.
Micro Results:
04/05/24 15:50 Nasal Screen MRSA (PCR) - Final
Nose MRSA not detected - performed by PCR methodology.
04/04/24 CT orbit: Predominantly soft tissue prominence in the region of the left lacrimal gland suggesting dacryoadenitis
--- NOTE | 2024-04-08 15:12 | W.PN.HOSP.TC ---
Today's Communication/Plan
-
po transition in 24h
trend cr
Assessment / Plan
Assessment / Plan
General: Well Developed, Well Nourished, No Apparent Distress, Comfortable and Conversant, morbidly obese
HEENT: NormoCephalic, Moist mucous membranes, Atraumatic, left eye red Conjunctivae, Nose Appears Normal, Ears Appear Normal and Other (Left periorbital erythema-improved and chemosis, mild left face edema); left forehead maculapapular rash
crusting, Left upper lip crusting noted
Respiratory: Clear and Non Labored Respirations
Cardiac: S1/S2 and Regular Rhythm; No Murmur, Rub or Gallop
GI: Soft, Non Tender, Non Distended and Normal Bowel Sounds; No Organomegaly
Musculoskeletal: No Clubbing, No Cyanosis and No Edema
Skin: Warm, No Rash
Neuro: Awake, Alert, AO x 3 and Nonfocal/grossly intact
Hematologic/Lymphatic: No Lymphadenopathy
Psych: anxious
# left preseptal cellulitis immunosuppressive patient
#dacryoadenitis
#Suspected left side facial Herpes zoster V2 dermatome infection
DC vancomycin
IV cefazolin and now transitioned back to Zosyn-significant improvement
CT head/orbits -Predominantly soft tissue prominence in the region of the left lacrimal gland suggesting dacryoadenitis
Started on IV acylcovir- increase in crusting noted
monitor rash. Facial culture sent to lab per ID
can use ice pack for facial swelling/edema
okay to shower. MRSA negative.
refused artificial tears
swelling and erythema has improved. Abx switched to Zosyn
#Sarcoidosis
-remicade q2w
-Follows up with senior consumer insights consultant in [place]
ADD-continue with Adderall
Suspected anxiety
Primary HTN -continue with losartan
Morbid obesity due to excess calories- on Mounjaro
DVT ppx-scds/encourage ambulation/lovenox
Anticipated Discharge: Within 24 hours
Subjective/Interval History
-
Date of Service: April 08, 2024
states improvement in swelling and erythema
appetite is improving
no headache or facial pain
Objective Data
-
Labs:
Laboratory Results
04/08/24
07:49
Sodium 138
Potassium 4.1
Chloride 100
Carbon Dioxide 25
BUN 9
Creatinine 1.0
Glucose 111 H
Calcium 9.1
Vital Signs:
Vital Signs
Temp Pulse Resp BP Pulse Ox
97.7 F 94 20 147/88 97
04/08/24 07:40 04/08/24 07:40 04/08/24 07:40 04/08/24 07:40 04/08/24 07:40
I&O
04/07/24 04/08/24 04/09/24
06:59 06:59 06:59
Intake Total 1919
Balance 1919
[2024-04-08 15:35] VITALS: BP 156/98
[2024-04-08] MEDS: LOVENOX 40 MG SC (17:38)
[2024-04-08 23:28] VITALS: BP 147/104
[2024-04-09] MEDS: ZOVIRAX INJECTION 272 MG IV ×2 (00:31→09:06)
[2024-04-09] MEDS: ZOSYN 100 IV (05:56)
[2024-04-09 07:43] VITALS: BP 139/88
[2024-04-09] MEDS: PROTONIX 40 MG PO (09:05)
[2024-04-09] MEDS: VISBIOME 2 CAP PO (09:06)
[2024-04-09] MEDS: COZAAR 25 MG PO (09:06)
[2024-04-09] MEDS: SINGULAIR 10 MG PO (09:06)
[2024-04-09] MEDS: NON-FORMULARY ITEM 30 MG PO (09:12)
[2024-04-09 09:28] LABS: Blood Urea Nitrogen 11 mg/dl (9-20); Calcium 9.6 mg/dl (8.4-10.2); Carbon Dioxide 23 mmol/L (22-30); Chloride 101 mmol/L (98-107); Estimated Creatinine Clearance > 125 ml/min; Glucose 100 mg/dl (70-99); Potassium 4.7 mmol/L (3.5-5.1); Sodium 138 mmol/L (135-145); eGFR > 60.00
--- NOTE | 2024-04-09 11:05 | W.PN.ID1 ---
Date of Service
Date of Service: April 09, 2024
Today's Communication
Transition to valacyclovir 1g po tid and cephalexin 500mg po q6 through 04/14/24
OK to DC home.
Assessment / Plan
# Suspect left V2 herpes zoster in an immunocompromised host
- left upper lip vesicle fluid HSV1,2 PCR pending, VZV PCR still pending
- 90% of lesion crusted
- Transition acyclovir IV to valacyclovir 1g po tid through 04/14/24
- Keep lesions covered until all crusted.
Household contact precautions discussed. Wash hands frequently.
- Will benefit from outpatient Shingrix vaccine x 2 doses.
# Left preseptal cellulitis
- Suspect herpes Zoster over bacterial
- CT orbit: no orbital involvement. + dacryoadenitits
- MRSA screen negative
- Transition Zosyn to cephalexin 500mg po q6h through 04/14/24.
#Sarcoidosis with nasal/vocal cord/lung granuloma, on Remicade
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
Sarcoidosis with lung/nasal granuloma on Remicade
Hypertension
GERD
ADHD
morbid obesity BMI 49
Vocal cord surgery
Lymph node biopsy
Bilateral Lacrimal duct dilation 2019
Nasal polypectomy
Chief Complaint
-: Other (Shingles)
Subjective / Review of Systems
Feels good today.
Vital Signs / Physical Exam
Vital Signs
Vital Signs
Temp Pulse Resp BP Pulse Ox
97.7 F 94 20 139/88 98
04/09/24 07:43 04/09/24 07:43 04/09/24 07:43 04/09/24 07:43 04/09/24 07:43
Physical Exam
Constitutional: No Acute Distress and Comfortable
Eyes: Other (decreased edema inferior-lateral to left orbit; decreasing chemosis left lateral conjunctiva); Negative Ocular Discharge (scant)
Oropharyngeal: Benign; Negative Ulcers
Cardiovascular: Regular Rate and S1/S2
Pulmonary: Clear
Gastrointestinal: Soft, Non Tender and Non Distended
Extremities: Negative Edema
Skin: Other (left facial lesions 90% crusted)
Neurological: AO x 3
Objective Data
Lab Data
Lab Results
04/07/24 08:17
04/09/24 08:16
Estimated Creat Clear > 125 ml/min 04/09/24 08:16
Most recent labs reviewed.
Micro Results:
04/05/24 15:50 Nasal Screen MRSA (PCR) - Final
Nose MRSA not detected - performed by PCR methodology.
04/04/24 CT orbit: Predominantly soft tissue prominence in the region of the left lacrimal gland suggesting dacryoadenitis
Care Review
Plan reviewed with: Physician (Dr. Llamas. )
[2024-04-09 11:26] LABS: Varicella-Zoster Source Vesicle; Varicella-Zoster Virus by PCR Detected
--- NOTE | 2024-04-09 11:43 | W.PN.HOSP.TC ---
Today's Communication/Plan
-
dc home
Assessment / Plan
Assessment / Plan
General: Well Developed, Well Nourished, No Apparent Distress, Comfortable and Conversant, morbidly obese
HEENT: NormoCephalic, Moist mucous membranes, Atraumatic, left eye red Conjunctivae, Nose Appears Normal, Ears Appear Normal and Other (Left periorbital erythema-improved and chemosis, mild left face edema); left forehead maculapapular rash
crusting, Left upper lip crusting noted
Respiratory: Clear and Non Labored Respirations
Cardiac: S1/S2 and Regular Rhythm; No Murmur, Rub or Gallop
GI: Soft, Non Tender, Non Distended and Normal Bowel Sounds; No Organomegaly
Musculoskeletal: No Clubbing, No Cyanosis and No Edema
Skin: Warm, No Rash
Neuro: Awake, Alert, AO x 3 and Nonfocal/grossly intact
Hematologic/Lymphatic: No Lymphadenopathy
Psych: anxious
# left preseptal cellulitis immunosuppressive patient
#dacryoadenitis
#Suspected left side facial Herpes zoster V2 dermatome infection
DC vancomycin
IV cefazolin and now transitioned back to Zosyn-significant improvement
CT head/orbits -Predominantly soft tissue prominence in the region of the left lacrimal gland suggesting dacryoadenitis
Started on IV acylcovir- increase in crusting noted
monitor rash. Facial culture sent to lab per ID
can use ice pack for facial swelling/edema
okay to shower. MRSA negative.
refused artificial tears
swelling and erythema has improved. Abx switched to Zosyn
Vesicle positive for VZV
d/w with ID recs po antiviral and abx. ok to dc home
#Sarcoidosis
-remicade q2w
-Follows up with legal activity adjudicator in [facility]
ADD-continue with Adderall
Suspected anxiety
Primary HTN -continue with losartan
Morbid obesity due to excess calories- on Mounjaro
DVT ppx-scds/encourage ambulation/lovenox
More than 30 minutes spent in discharge including
Final examination of the patient
Summarizing hospital stay
Instructions for continuing care to all relevant caregivers
Preparation of discharge records, prescriptions, and referral forms
Total time spent (in minutes): 52
Anticipated Discharge: Today
Subjective/Interval History
-
Date of Service: April 09, 2024
states feeling alot better
Objective Data
-
Labs:
Laboratory Results
04/09/24
08:16
Sodium 138
Potassium 4.7
Chloride 101
Carbon Dioxide 23
BUN 11
Creatinine 1.0
Glucose 100 H
Calcium 9.6
Vital Signs:
Vital Signs
Temp Pulse Resp BP Pulse Ox
97.7 F 94 20 139/88 98
04/09/24 07:43 04/09/24 07:43 04/09/24 07:43 04/09/24 07:43 04/09/24 07:43
I&O
04/08/24 04/09/24 04/10/24
06:59 06:59 06:59
Intake Total 1690 / 1690 2111
Balance 1690 / 1690 2111
--- NOTE | 2024-04-09 11:48 | W.DCSUMMARY ---
Discharge Summary
Discharge Data
Date of Admission: 04/04/24
Date of Discharge: 04/09/24
-
Pending Results: No
Hospital Course
38-year-old male past medical history of sarcoidosis on Remicade, ADD, anxiety suspected, primary hypertension, morbid obesity to excess calories who is presenting from home with left-sided facial pain and swelling. Patient underwent CT /orbits
-Predominantly soft tissue prominence in the region of the left lacrimal gland suggesting dacryoadenitis. Significant facial swelling. Patient initially was started on vancomycin and Zosyn. Infectious disease was consulted .Suspected left-sided
V2 dermatome herpes zoster infection and patient was started on IV acyclovir. Patient already started [place] slowly. Vancomycin was discontinued. Initially patient was on cefazolin without much improvement thus it was restarted on Zosyn.
Patient rash significantly improved. Left eye swelling significantly decreased. Patient was able to tolerate. Patient remained afebrile. Patient be transition to p.o. Valtrex and Keflex per ID recommendation on discharge.
Discharge Plan
-
Patient Disposition: Home (Routine Discharge)
Discharge Diagnosis/Procedures: left preseptal cellulitis immunosuppressive patient
dacryoadenitis
Suspected left side facial Herpes zoster V2 dermatome infection
Condition: Fair
Diet: As tolerated
Activity: No restrictions
Driving Restrictions: Not until seen by your Dr
Activity Restrictions/Additional Instructions:
Keep lesions covered until all crusted.
Household contact precautions. Wash hands frequently.
Will benefit from outpatient Shingrix vaccine x 2 doses.
Referrals:
Janis Gomez PA [Family Provider] -
Prescriptions:
New
cephalexin 500 mg capsule
500 mg PO Q6H Qty: 24 0RF
valacyclovir [Valtrex] 1 gram tablet
1,000 mg PO TID 6 Days Qty: 18 0RF
Continued
infliximab [Remicade] 100 MG/10 ML recon soln
100 mg IV Q2M
Patient Comments:
omeprazole 40 mg Capsule,Delayed Release(Dr/Ec)
40 mg PO DAILY
losartan 25 mg Tablet
25 mg PO DAILY
montelukast [Singulair] 10 mg Tablet
10 mg PO DAILY
dextroamphetamine-amphetamine [Adderall XR] 30 mg Capsule,Extended Release 24hr
30 mg PO DAILY
Mounjaro 7.5 mg/0.5 mL Pen Injector
7.5 mg SC FR
Discontinued
amoxicillin-pot clavulanate 875-125 mg tablet
1 tab PO BID Qty: 20 0RF
Discharge Orders:
Discharge Patient (As Directed); Ordered 04/09/24
Ordered By: Dusty Llamas
Discharge Date and Time
Discharge Date/Time: 04/09/24 12:30
Print Language: [place]AST [place]
[2024-04-09 12:06] VITALS: BP 123/88
[2024-04-09 16:32] LABS: HSV 1 Subtype by PCR Not Detected; HSV 2 Subtype by PCR Not Detected; Herpes Simplex Source Vesicle
== END 2024-04-09 12:30 | disposition home or self-care (01) | DRG 596 ==
LOC: 4 WEST ACU 15:17
PROVIDERS: Nurse Practitioner Family; ADMITTING PHYSICIAN Hospitalist; ATTENDING PHYSICIAN Hospitalist; CONSULT PHYSICIAN Internal Medicine Infectious Disease; EMERGENCY PHYSICIAN Emergency Medicine; FAMILY PHYSICIAN Physician Assistant
DX: B02.9 Zoster without complications (principal); L03.213 Periorbital cellulitis; Z68.42 Body mass index [BMI] 45.0-49.9, adult; D84.9 Immunodeficiency, unspecified; H04.002 Unspecified dacryoadenitis, left lacrimal gland; D86.0 Sarcoidosis of lung; F90.9 Attention-deficit hyperactivity disorder, unspecified type; E66.01 Morbid (severe) obesity due to excess calories; I10 Essential (primary) hypertension; K21.9 Gastro-esophageal reflux disease without esophagitis; Z87.891 Personal history of nicotine dependence
CPT/HCPCS: 70481; 80048; 82565; 84520; 85025; 85027; 87529; 87641; 87798; 99285; Q9967